=== PATIENT | female | born 1980 | race Caucasian/White ===

== ENCOUNTER 2022-10-30 09:43 | Outpatient (CLI) | payer BC | END 2022-10-30 09:44 | disposition home or self-care (01) | LOC: CSHMAMMO 09:43 | PROVIDERS: ATTEND Obstetrics & Gynecology | DX: Z12.31 Encounter for screening mammogram for malignant neoplasm of breast (principal); N63.20 Unspecified lump in the left breast, unspecified quadrant | CPT/HCPCS: 77063; 77067 ==

== ENCOUNTER 2022-11-07 08:05 | Outpatient (CLI) | payer BC | END 2022-11-07 08:06 | disposition home or self-care (01) | LOC: CSHULT 08:05 | PROVIDERS: ATTEND Obstetrics & Gynecology | DX: N63.20 Unspecified lump in the left breast, unspecified quadrant (principal) ==